=== PATIENT | male | born 1960 | race Caucasian/White ===

== ENCOUNTER 2019-01-16 21:23 | Observation (INO) ==
[2019-01-16] MEDS ORDERED: 0.9 % Sodium Chloride 1,000 ML IVC ONE (21:26)
--- NOTE | 2019-01-16 21:29 | Emergency Department Note ---
Overdose - Differential Diagnosis Likely: suicide attempt by multiple drug overdose, intentional overdose, accidental drug ingestion - Lab Data Lab results reviewed: Yes I reviewed the patient's lab results. Result diagrams: 01/16/19 21:36 01/16/19 21:36 Lab Results 01/16/19 01/16/19 01/16/19 Range/Units 21:26 21:35 21:36 WBC (4.3-11.1) K/mcL RBC (4.19-5.50) M/mcL Hgb (12.9-16.9) g/dL Hct (37.5-50.1) % MCV (83.0-100.0) fL MCH (28.0-33.3) pg MCHC (31.6-35.5) g/dL RDW (11.5-14.5) % Plt Count (140-400) K/mcL MPV (9.4-12.4) fL Immature Gran % (0-4) % Seg Neutrophils % % Lymphocytes % % Monocytes % % Eosinophils % % Basophils % % Neutrophils # (1.6-8.9) K/mcL Lymphocytes # (0.6-4.6) K/mcL Monocytes # (0.0-1.3) K/mcL Eosinophils # (0.0-0.6) K/mcL Basophils # (0.0-0.2) K/mcL Sodium (136-145) mEq/L Potassium (3.5-5.1) mEq/L Chloride (98-107) mEq/L Carbon Dioxide (23-29) mEq/L BUN (6-20) mg/dL Creatinine (0.70-1.30) mg/dL Est GFR ( Amer) (> 60) Est GFR (Non-Af Amer) (> 60) BUN/Creatinine Ratio (6-26) Glucose (70-105) mg/dL POC Glucose 155 H (70-99) mg/dL Calculated Osmolality (280-300) Calcium (8.6-10.3) mg/dL Total Bilirubin (0.3-1.0) mg/dL Direct Bilirubin (0.0-0.2) mg/dL Indirect Bilirubin (0.0-1.2) mg/dL AST (13-39) Units/L ALT (7-52) Units/L Alkaline Phosphatase (34-104) Units/L Serum Total Protein (6.4-8.9) g/dL Albumin (3.5-5.7) g/dL Globulin (2.4-3.5) g/dL Albumin/Globulin Ratio (1.1-2.2) Urine Color Yellow (Yellow) Urine Clarity Slightly Cloudy A (Clear) Urine pH 5.0 (5.0-8.0) pH Units Ur Specific [place] 1.020 (1.010-1.025) Urine Protein 30 H (Neg-Trace) mg/dL Urine Glucose (UA) Normal (Normal) mg/dL Urine Ketones Negative (Negative) mg/dL Urine Blood Trace-intact H (Negative) Urine Nitrite Negative (Negative) Urine Bilirubin Negative (Negative) Urine Urobilinogen Normal (Normal) mg/dL Ur Leukocyte Esterase Negative (Negative) Urine Microscopic RBC 3-5 H (0-3) per hpf Urine Microscopic WBC 3-5 H (0-3) per hpf Ur Squamous Epith Cells Few (None-Few) per lpf Urine Bacteria Many H (None-Few) per hpf Hyaline Casts Many H (None-Few) per lpf Urine Mucus Many H (Few) Urine Sperm Present Salicylates (15.0-30.0) mg/dL Urine Opiates Screen Negative (Oxjobs=700) ng/mL Ur Oxycodone Screen Negative (Cutoff= 100) ng/mL Acetaminophen (10-20) mcg/mL Ur Barbiturates Screen Negative (Byzpve=512) ng/mL Ur Phencyclidine Scrn Negative (Cutoff=25) ng/mL Ur Amphetamines Screen Negative (Axbaue=4057) ng/mL U Benzodiazepines Scrn Negative (Ljmpxi=061) ng/mL Urine Cocaine Screen Negative (Cutoff= 300) ng/mL U Marijuana (THC) Screen Positive H (Cutoff = 50) ng/mL Ur Drug Screen Interp See Below Ethyl Alcohol (Less than 10) mg/dL 01/16/19 01/16/19 Range/Units 21:36 21:36 WBC 15.1 H (4.3-11.1) K/mcL RBC 4.63 (4.19-5.50) M/mcL Hgb 15.0 (12.9-16.9) g/dL Hct 46.0 (37.5-50.1) % MCV 99.4 (83.0-100.0) fL MCH 32.4 (28.0-33.3) pg MCHC 32.6 (31.6-35.5) g/dL RDW 13.2 (11.5-14.5) % Plt Count 276 (140-400) K/mcL MPV 9.4 (9.4-12.4) fL Immature Gran % 0.7 (0-4) % Seg Neutrophils % 71.3 % Lymphocytes % 20.1 % Monocytes % 6.8 % Eosinophils % 0.7 % Basophils % 0.4 % Neutrophils # 10.8 H (1.6-8.9) K/mcL Lymphocytes # 3.0 (0.6-4.6) K/mcL Monocytes # 1.0 (0.0-1.3) K/mcL Eosinophils # 0.1 (0.0-0.6) K/mcL Basophils # 0.1 (0.0-0.2) K/mcL Sodium 141 (136-145) mEq/L Potassium 4.1 (3.5-5.1) mEq/L Chloride 102 (98-107) mEq/L Carbon Dioxide 26 (23-29) mEq/L BUN 14 (6-20) mg/dL Creatinine 1.61 H (0.70-1.30) mg/dL Est GFR ( Amer) 53 L (> 60) Est GFR (Non-Af Amer) 44 L (> 60) BUN/Creatinine Ratio 9 (6-26) Glucose 149 H (70-105) mg/dL POC Glucose (70-99) mg/dL Calculated Osmolality 295 (280-300) Calcium 9.2 (8.6-10.3) mg/dL Total Bilirubin 0.5 (0.3-1.0) mg/dL Direct Bilirubin 0.1 (0.0-0.2) mg/dL Indirect Bilirubin 0.4 (0.0-1.2) mg/dL AST 102 H (13-39) Units/L ALT 131 H (7-52) Units/L Alkaline Phosphatase 66 (34-104) Units/L Serum Total Protein 7.4 (6.4-8.9) g/dL Albumin 4.4 (3.5-5.7) g/dL Globulin 3.0 (2.4-3.5) g/dL Albumin/Globulin Ratio 1.5 (1.1-2.2) Urine Color (Yellow) Urine Clarity (Clear) Urine pH (5.0-8.0) pH Units Ur Specific [place] (1.010-1.025) Urine Protein (Neg-Trace) mg/dL Urine Glucose (UA) (Normal) mg/dL Urine Ketones (Negative) mg/dL Urine Blood (Negative) Urine Nitrite (Negative) Urine Bilirubin (Negative) Urine Urobilinogen (Normal) mg/dL Ur Leukocyte Esterase (Negative) Urine Microscopic RBC (0-3) per hpf Urine Microscopic WBC (0-3) per hpf Ur Squamous Epith Cells (None-Few) per lpf Urine Bacteria (None-Few) per hpf Hyaline Casts (None-Few) per lpf Urine Mucus (Few) Urine Sperm Salicylates 3.6 L (15.0-30.0) mg/dL Urine Opiates Screen (Ickeey=236) ng/mL Ur Oxycodone Screen (Cutoff= 100) ng/mL Acetaminophen < 10 L (10-20) mcg/mL Ur Barbiturates Screen (Ebwyfs=588) ng/mL Ur Phencyclidine Scrn (Cutoff=25) ng/mL Ur Amphetamines Screen (Ecuwja=4799) ng/mL U Benzodiazepines Scrn (Bojoqo=854) ng/mL Urine Cocaine Screen (Cutoff= 300) ng/mL U Marijuana (THC) Screen (Cutoff = 50) ng/mL Ur Drug Screen Interp Ethyl Alcohol < 10 (Less than 10) mg/dL - Radiology Data Radiology results reviewed: Yes I reviewed the patient's radiology results. Single view chest x-ray is performed. This shows hyperexpansion and apical emphysematous changes consistent with emphysema and COPD. There is no evidence for acute infiltrates, effusion, pneumothorax or heart failure. The cardiac silhouette appears normal. This is on my interpretation. Impressions Chest X-Ray 01/16/19 21:36 IMPRESSION: No acute cardiopulmonary disease. COPD. D/ / Miguel Pinzon MD / Miguel Pinzon MD Interpreting Provider: Miguel Pinzon MD - EKG Data EKG attestation: Yes I reviewed and interpreted this EKG. EKG shows normal: sinus rhythm, axis, intervals, QRS complexes, ST-T waves Rate: tachycardia (111) Interpretation: no acute changes, normal EKG Overdose HPI - General Stated Complaint: overdose Time Seen by Provider: 01/16/19 21:26 Source: patient, family Mode of arrival: private vehicle Limitations: altered mental status Nursing Notes Reviewed: Yes Vital Signs Reviewed: Yes - History of Present Illness HPI Narrative: Patient arrives by private auto honking outside of our emergency department doors. He is unresponsive and has been reported to "have taken something". He is cyanotic with pulse. His respirations are only 2-3 a minute. His pupils are small but unresponsive. He has bulging veins no obvious track dickson. He is unknown on arrival if this was an accidental/recreational drug use versus unintentional overdose. Patient is brought immediately to examining room and treatment initiated. No history is initially available from the patient or family due to the patient's acuity. Onset (ago): Just [employer] Timing confirmed by: family member Intent: accidental, unknown How Overdose Was Discovered: family/friend present at time Associated symptoms: shortness of breath Treatments Prior to Arrival: none - Related Data Home Medications Medication Instructions Recorded Confirmed Aspirin Enteric Coated [Aspirin EC] 81 mg PO DAILY 11/09/18 11/25/18 Gabapentin [Neurontin] 300 mg PO DAILY 11/09/18 11/09/18 Albuterol Sulfate [Proair Hfa] 2 puff IH Q4-6H PRN 11/25/18 11/25/18 Mv,Minerals/FA/Lycopene/Ginkgo 1 each PO DAILY 11/25/18 11/25/18 [One Daily For Men 50+ Adv Tab] Omeprazole [PriLOSEC] 40 mg PO DAILY 11/25/18 11/25/18 Previous Rx's Medication Instructions Recorded Acetaminophen [Tylenol] 650 mg PO Q6HR PRN #24 tablet 11/28/18 Budesonide/Formoterol 160/4.5 2 puff IH BIDR #1 bottle 11/28/18 [Symbicort 160/4.5] GuaiFENesin Liq [Robitussin Liq] 200 mg PO Q6HR #200 ml 11/28/18 predniSONE [PredniSONE] See Taper PO DAILY #12 tablet 11/28/18 Allergies Allergy/AdvReac Type Severity Reaction Status Date / Time No Known Allergies Allergy Verified 01/16/19 21:44 All systems ED: reviewed and negative except as stated. Past Medical History - Past Medical History Attestation: Yes The following information was validated with the patient. Source: old records reviewed, nursing notes reviewed Medical history: Reports: COPD Psychiatric history: Reports: no psych history - Social History Smoking Status: Current every day smoker Smokeless Tobacco Status: No Alcohol use: Reports: occasionally Drug use: Reports: none Physical Exam - General Limitations: altered mental status, physical limitation General appearance: obtunded, other (Densely cyanotic with distended neck veins, appendectomy) - Head Head exam: atraumatic, normocephalic, other (Cyanotic) - Eye Eye exam: Present: normal appearance, miosis. Absent: scleral icterus, conjunctival injection - ENT ENT exam: normal exam, normal oropharynx, mucous membranes moist - Neck Neck exam: Present: normal inspection, trachea midline - Chest Chest inspection: Present: normal inspection, other (Normal respiratory effort on arrival) - Respiratory Respiratory exam: Present: other (Apneic without respiratory effort, no response to sternal rub) - Cardiovascular Cardiovascular exam: Present: regular rate, normal rhythm, normal heart sounds - Abdominal Exam Abdominal exam: Present: soft, Non-Tender. Absent: tenderness, distention, guarding, rebound, rigidity - Extremities Exam Extremities exam: Present: normal inspection, full ROM, other (Cyanosis. No evidence for track dickson.). Absent: tenderness, pedal edema - Expanded Lower Extremity Exam Neurovascular/Tendon exam: Absent: normal capillary refill Gait: not tested/not observed - Neurological Exam Neurological exam: Present: other (Completely unresponsive on arrival and apneic) - Psychiatric Psychiatric exam: Present: other (Unresponsive on arrival) - Skin Skin exam: Present: dry, intact, cyanosis. Absent: normal color, diaphoresis Course Course Narrative: 2129: After 1 mg Narcan the patient is alert and maintaining his own airway. His pupils are about 4-5 mm and is conversive. He states that he did not take anything more than a Neurontin this evening. He denies any type of narcotic orally or intravenously. He is unable to explain why he would have responded so abruptly to Narcan. Patient is denying any specific physical complaint at this time. He denies taking any medication for self-harm or any thoughts of self- harm. 2134: I discussed care with the patient's family. He has had increased shortness of breath with his emphysema and COPD. Patient stated he had to stop frequently while they are walking around [facility]. They stopped to get some slushies, he took a 800 mg gabapentin and shortly thereafter stopped breathing and turned blue. They state that he did not have anything more than his COPD over the course the day and they understood that it was a gabapentin that he was taking. He has not voiced any thoughts of self-harm. They are not sure of the prescription was his own or somebody else's. They note that he has been prescribed them in the past. They report he did have a couple alcoholic beverages this evening. He has not been having abnormal coughing or fevers, chills or chest pain. They state he was recently admitted for a few days at [facility] for his COPD. 2154: Patient is resting comfortably. He currently has a respiratory rate of 14, heart rate of 104 and a oxygen saturation 94% on room air. Blood pressure is 110/70. He is alert and conversive with family at bedside. He was requesting to go home and he is encouraged to stay to evaluate further causes for his altered mental status. His family states that there might of been a woman at [facility] who gave him something. He is clear that his syndrome is of a narcotic overdose. He is adamant that he did not believe he was taking a narcotic. 2239: Patient has been very hesitant about staying in the hospital. I reviewed his testing with him and he does have significant new renal insufficiency. He had a life-threatening event with apneic, unresponsive this and did not cyanosis. He should be observed clinically and with repeat lab work status post continued IV hydration. I will allow the patient to talk this over with his family and he is, at this point, willing to stay for tonight. Patient is adamant against any transfer and refuses to go to [facility]. A call has been placed to Dr. Wang to discuss his potential observation. 2244: Care has been discussed with Dr. Wang and verbal orders have been obtained for his observation Vital Signs Temperature 98.8 F 01/16/19 21:30 Pulse Rate 112 01/16/19 21:30 Respiratory Rate 12 01/16/19 21:30 Blood Pressure 159/94 01/16/19 21:30 O2 Sat by Pulse Oximetry 100 01/16/19 21:30 Temperature 98.4 F 01/16/19 23:36 Pulse Rate 96 01/16/19 23:36 Respiratory Rate 17 01/16/19 23:36 Blood Pressure 104/64 01/16/19 23:36 O2 Sat by Pulse Oximetry 94 01/16/19 23:36 Oxygen Delivery Oxygen Delivery Nasal Cannula Critical Care Time Critical Care Time: Yes Total Critical Care Time: 50 Attestation: As this patient did present with signs and symptoms of potential life- threatening illness requiring my urgent intervention, total critical care time in this patient's care has been 50 minutes, not withstanding separately reportable procedures. Disposition Clinical Impression: Acute renal insufficiency Accidental drug ingestion Qualifiers: Encounter type: initial encounter Qualified Code(s): T50.901A - Poisoning by unspecified drugs, medicaments and biological substances, accidental (unintentional), initial encounter Altered mental status Qualifiers: Altered mental status type: stupor Qualified Code(s): R40.1 - Stupor Disposition: Admitted As Inpatient Condition: Fair
[2019-01-16 21:43] LABS: Bilirubin,Urine Negative (Negative); Blood,Urine Trace-intact (Negative); Clarity,Urine Slightly Cloudy (Clear); Color,Urine Yellow (Yellow); Glucose,Urine (UA) Normal (Normal); Ketones,Urine Negative (Negative); Leukocyte Esterase,Urine Negative (Negative); Nitrite,Urine Negative (Negative); Protein,Urine 30 mg/dL (Neg-Trace); Urobilinogen,Urine Normal (Normal)
[2019-01-16 21:49] LABS: Basophils # 0.1 K/mcL (0.0-0.2); Basophils % 0.4 %; Eosinophils # 0.1 K/mcL (0.0-0.6); Eosinophils % 0.7 %; Immature Granulocytes % 0.7 % (0-4); Lymphocytes % 20.1 %; Mean Corpuscular HGB Conc 32.6 g/dL (31.6-35.5); Mean Corpuscular Hemoglobin 32.4 pg (28.0-33.3); Mean Corpuscular Volume 99.4 fL (83.0-100.0); Mean Platelet Volume 9.4 fL (9.4-12.4); Monocytes % 6.8 %; Neutrophils # 10.8 K/mcL (1.6-8.9); Platelet Count 276 K/mcL (140-400); Red Blood Count 4.63 M/mcL (4.19-5.50); Red Cell Distribution Width 13.2 % (11.5-14.5); Segmented Neutrophils % 71.3 %
[2019-01-16 22:02] LABS: Hyaline Casts,Urine Many per lpf (None-Few)
[2019-01-16 22:03] LABS: Bacteria,Urine Many per hpf (None-Few); Mucus,Urine Many (Few); Sperm,Urine Present
[2019-01-16 22:06] LABS: Squamous Epithelial Cell,Urine Few per lpf (None-Few)
[2019-01-16 22:07] LABS: Acetaminophen < 10 mcg/mL (10-20); Alanine Aminotransferase 131 Units/L (7-52); Albumin 4.4 g/dL (3.5-5.7); Albumin/Globulin Ratio 1.5 (1.1-2.2); Alkaline Phosphatase 66 Units/L (34-104); Amphetamine Screen,Urine Negative ng/mL (Cutoff=1000); Aspartate Amino Transferase 102 Units/L (13-39); BUN/Creatinine Ratio 9 (6-26); Barbiturate Screen,Urine Negative ng/mL (Cutoff=200); Benzodiazepines Screen,Urine Negative ng/mL (Cutoff=200); Bilirubin,Direct 0.1 mg/dL (0.0-0.2); Bilirubin,Indirect 0.4 mg/dL (0.0-1.2); Bilirubin,Total 0.5 mg/dL (0.3-1.0); Blood Urea Nitrogen 14 mg/dL (6-20); Calcium 9.2 mg/dL (8.6-10.3); Cannabinoid Screen,Urine Positive ng/mL (Cutoff = 50); Carbon Dioxide 26 mEq/L (23-29); Chloride 102 mEq/L (98-107); Cocaine Screen,Urine Negative ng/mL (Cutoff= 300); Ethanol < 10 mg/dL (Less than 10); Glucose 149 mg/dL (70-105); Opiate Screen,Urine Negative ng/mL (Cutoff=300); Osmolality,Calculated 295 (280-300); Phencyclidine Screen,Urine Negative ng/mL (Cutoff=25); Potassium 4.1 mEq/L (3.5-5.1); Salicylate 3.6 mg/dL (15.0-30.0); Sodium 141 mEq/L (136-145); Total Protein 7.4 g/dL (6.4-8.9); eGFR For Non-African Americans 44 (> 60)
[2019-01-16] MEDS ORDERED: Naloxone 0.4 MG/ML INJ IVP PRN (23:34)
[2019-01-16] MEDS ORDERED: MOM Conc 10 ML UD.LIQ PO PRN (23:34)
[2019-01-16] MEDS ORDERED: Albuterol 2.5 MG/3 ML NEBULIZER IH PRN (23:34)
[2019-01-16] MEDS ORDERED: Mag Hydrox/Al Hydrox/Simeth 30 ML UDC PO PRN (23:34)
[2019-01-16] MEDS ORDERED: Ondansetron 4 MG/2 ML VIAL IVP PRN (23:34)
[2019-01-16] MEDS: 0.9 % Sodium Chloride 1,000 ML IVC SCH (23:51)
[2019-01-17] MEDS ORDERED: Nicotine 21 MG PATCH.TD24 TD SCH (01:30)
[2019-01-17] MEDS: Ipratropium/Albuterol Neb 3 ML IH SCH ×2 (04:41→10:31)
[2019-01-17] MEDS: 0.9 % Sodium Chloride 1,000 ML IVC SCH (06:55)
[2019-01-17 06:58] LABS: BUN/Creatinine Ratio 15 (6-26); Blood Urea Nitrogen 16 mg/dL (6-20); Calcium 8.6 mg/dL (8.6-10.3); Carbon Dioxide 29 mEq/L (23-29); Chloride 105 mEq/L (98-107); Glucose 184 mg/dL (70-105); Osmolality,Calculated 298 (280-300); Potassium 4.8 mEq/L (3.5-5.1); Sodium 141 mEq/L (136-145); eGFR For Non-African Americans > 60 (> 60)
[2019-01-17] MEDS ORDERED: Ondansetron ODT 4 MG TAB.RAPDIS SL PRN (09:01)
[2019-01-17] MEDS ORDERED: Acetaminophen 325 MG TABLET PO PRN (09:01)
[2019-01-17 10:48] VITALS: BP 106/67
--- NOTE | 2019-01-17 14:51 | Internal Med History&Physical ---
Date of Encounter: 01/17/19 Time of Encounter: 14:00 Assessment and Plan (1) Syncope Current visit: Yes Status: Acute Etiology not obvious. He denies illicit drug use other than THC. Improvement from Narcan is not easily explained based on urine drug test results. He wishes to be discharged home. Qualifiers: Syncope type: unspecified Qualified Code(s): R55 - Syncope and collapse (2) Elevated transaminase level Current visit: Yes Status: Acute No previous labs for comparison. His PCP can do further workup. (3) Acute renal insufficiency Current visit: Yes Status: Resolved Creatinine improved to 1.09 today with estimated GFR greater than 60. His PCP can monitor. (4) Hyperglycemia Current visit: Yes Status: Acute Present on labs since 11/26/2018. His PCP can order further workup/treatment. Internal Medicine - H&P: HPI Chief complaint: Syncope Admitted From: Emergency Dept Plans for Post Hospital Care: Home History of present illness: Mr. Roldan is a 58 year old male who was brought to emergency room by private vehicle due to unresponsiveness. He has limited ability to recall the details surrounding admission. Family who supplied history in emergency room reported patient had been shopping at [employer] with family. They left [employer] and went to a gas station for refreshments. Patient states he took 2 tablets of gabapentin 800 mg from a friend sometime in the afternoon. He denies ingestion of any other drugs except taking a "couple puffs" from a marijuana joint. He became unconscious and was brought to emergency room. He was given Narcan with significant improvement. Urine drug screen was negative for opiates. He was admitted to [facility] floor for observation. He reports he has not used illicit drugs other than THC for approximately 18 months. He reports consuming one beer in the past week. He denies previous syncopal or near syncopal episodes. He states he feels back to his baseline now and wishes to be discharged home. Past Med Surg Social Fam HX - Past Medical History Medical history: arthritis, asthma, COPD, GERD, other Additional medical history: CHRONIC BACK ISSUES , WEARS HOME 02 @ 2L w/ yordan, polysubstance abuse Psychiatric history: no psych history - Past Surgical History Additional surgical history: SURG ON STOMACH ULCERS - Social History Smoking Status: Current every day smoker Smokeless Tobacco Status: No Alcohol use: occasionally, recent Drug use: unknown, opiates, marijuana, methamphetamine, prescription drug abuse - Family History Father Hx Family Cancer: Yes Mother Hx Family Cardiac Disorders: Yes Brother Hx Family Respiratory Disorders: Yes Internal Medicine - H&P: Meds Aspirin Enteric Coated [Aspirin EC] 81 mg PO DAILY 11/09/18 [History] Gabapentin [Neurontin] 300 mg PO DAILY 11/09/18 [History] Albuterol Sulfate [Proair Hfa] 2 puff IH Q4-6H PRN 11/25/18 [History] Mv,Minerals/FA/Lycopene/Ginkgo [One Daily For Men 50+ Adv Tab] 1 each PO DAILY 11/25/18 [History] Omeprazole [PriLOSEC] 40 mg PO DAILY 11/25/18 [History] Acetaminophen [Tylenol] 650 mg PO Q6HR PRN #24 tablet 11/28/18 [Rx] Budesonide/Formoterol 160/4.5 [Symbicort 160/4.5] 2 puff IH BIDR #1 bottle 11/28/18 [Rx] GuaiFENesin Liq [Robitussin Liq] 200 mg PO Q6HR #200 ml 11/28/18 [Rx] predniSONE [PredniSONE] See Taper PO DAILY #12 tablet 11/28/18 [Rx] Allergy/AdvReac Type Severity Reaction Status Date / Time No Known Allergies Allergy Verified 01/16/19 21:44 All Systems PM: A 10-system review of systems was performed and is negative for pertinent findings except as documented above in the HPI. Review of systems: Gen.: He reports his weight has been stable for many months Cardiovascular: He reports he has seen a fudger at [place] in the past but does not know a diagnosis. Reports he was started on aspirin 81 mg daily. He denies [place] heart failure DVT or pulmonary embolus. He reports an EST approximately 2017 showed no findings needing further workup or intervention. He does report occasional chest pain on exertion described as a "ache". Respiratory: He is smoked since age 11 up to 2 packs per day. He reports PFTs several years ago showed COPD. He uses oxygen at bedtime and when necessary during the daytime GI: He reports a GI bleed approximate 2016 without recurrence. He reports having EGD more than one occasion with most recent one approximately 10 years ago. He reports colonoscopy approximate 2014. He denies disorders of his liver gallbladder or exocrine pancreas : He denies hematuria dysuria or kidney stones Neurologic: He denies large distribution strokes or seizures. Endocrine: He denies diabetes thyroid disease or hyperlipidemia Hematology/oncology: He denies blood disorders cancers or anemia Psychiatric: He denies anxiety depression or other mental health issues [place] skeletal: He denies arthritis gout or other bone joint or muscle disorders. - Constitutional Vitals: Temp Pulse Resp BP Pulse Ox 98.1 F 77 16 106/67 97 01/17/19 10:46 01/17/19 10:46 01/17/19 10:46 01/17/19 10:46 01/17/19 10:46 Exam: Gen.: He is a well-developed lean male resting comfortably in bed who appears in no acute distress HEENT: Head is atraumatic and normocephalic. Eyes: EOMI. There is no scleral icterus. Mouth: Mucosa is moist. Neck: Supple and nontender. There is no thyromegaly or adenopathy noted. Heart: Regular without murmurs gallops or ectopics Lungs: No wheezes or crackles are heard. Abdomen: Soft and nontender. No masses or guarding are noted. Extremities: There is no cyanosis edema or clubbing noted. Dorsalis pedis and posterior tibial pulses are trace palpable bilaterally. Neurologic: Mental status: He is talkative and a fair historian. He is rambling in conversation and does not remember some details of his history. Cranial nerves: Smile is symmetric. Forehead wrinkles bilaterally. Tongue protrudes midline. EOMI. Motor: There is no pronator drift. Cerebellar: Fair to nose is intact bilaterally. Skin: Warm and dry Internal Med - H&P Results - Labs CBC & Chem 7: 01/16/19 21:36 01/17/19 06:00 Labs: Short CBC 01/16/19 Range/Units 21:36 WBC 15.1 H (4.3-11.1) K/mcL Hgb 15.0 (12.9-16.9) g/dL Hct 46.0 (37.5-50.1) % Plt Count 276 (140-400) K/mcL Neutrophils # 10.8 H (1.6-8.9) K/mcL BMP 01/16/19 01/17/19 21:36 06:00 Sodium 141 141 Potassium 4.1 4.8 Chloride 102 105 Carbon Dioxide 26 29 BUN 14 16 Creatinine 1.61 H 1.09 Glucose 149 H 184 H Calcium 9.2 8.6 Liver Function 01/16/19 Range/Units 21:36 Total Bilirubin 0.5 (0.3-1.0) mg/dL Direct Bilirubin 0.1 (0.0-0.2) mg/dL AST 102 H (13-39) Units/L ALT 131 H (7-52) Units/L Alkaline Phosphatase 66 (34-104) Units/L Albumin 4.4 (3.5-5.7) g/dL Urine 01/16/19 Range/Units 21:26 Urine Color Yellow (Yellow) Urine Clarity Slightly Cloudy A (Clear) Urine pH 5.0 (5.0-8.0) pH Units Ur Specific [place] 1.020 (1.010-1.025) Urine Protein 30 H (Neg-Trace) mg/dL Urine Glucose (UA) Normal (Normal) mg/dL - Impressions ITS Impressions Chest X-Ray 01/16/19 21:36 IMPRESSION: No acute cardiopulmonary disease. COPD. D/ / Miguel Pinzon MD / Miguel Pinzon MD Interpreting Provider: Miguel Pinzon MD
--- NOTE | 2019-01-17 15:05 | Discharge Summary ---
Orders not resulted at time of discharge: Pending orders 01/16/19 21:26 ECG 12 lead ECG [ECG] Stat Date of Encounter: 01/17/19 Time of Encounter: 14:00 - Discharge Diagnosis (1) Syncope Priority: Primary Status: Resolved Qualifiers: Syncope type: unspecified Qualified Code(s): R55 - Syncope and collapse (2) Elevated transaminase level Priority: Secondary Status: Acute (3) Acute renal insufficiency Priority: Secondary Status: Resolved (4) Hyperglycemia Priority: Secondary Status: Acute Hospital course: Mr. Rlodan is a 58 year old male who was brought to emergency room by private vehicle due to unresponsiveness. He has limited ability to recall the details surrounding admission. Family who supplied history in emergency room reported patient had been shopping at [email or web address] with family. They left [email or web address] and went to a gas station for refreshments. Patient states he took 2 tablets of gabapentin 800 mg from a friend sometime in the afternoon. He denies ingestion of any other drugs except taking a "couple puffs" from a marijuana joint. He became unconscious and was brought to emergency room. He was given Narcan with significant improvement. Urine drug screen was negative for opiates. He was admitted to [facility] for observation. Initial orders were written by the emergency room physician. I saw him the afternoon of January 17 and performed a history physical and discharge. By the time I saw him he felt back to his baseline. He had adequate intake of food and fluids and was stable on ambulation. He could not give additional useful information about the syncopal episode. I encouraged him to become a nonsmoker and avoid all illicit substance use/abuse. He will follow with his PCP within 1 week. Further workup for elevated transaminase levels and hyperglycemia can be done by his PCP. - Time Spent with Patient Total time spent providing and/or coordinating discharge services: - Discharge Medications Prescriptions: Continued Gabapentin [Neurontin] 300 mg PO DAILY Aspirin Enteric Coated [Aspirin EC] 81 mg PO DAILY Albuterol Sulfate [Proair Hfa] 2 puff IH Q4-6H PRN PRN Reason: wheezing, shortness of breath Mv,Minerals/FA/Lycopene/Ginkgo [One Daily For Men 50+ Adv Tab] 1 each PO DAILY Omeprazole [PriLOSEC] 40 mg PO DAILY Acetaminophen [Tylenol] 650 mg PO Q6HR PRN #24 tablet PRN Reason: mild pain/fever GuaiFENesin Liq [Robitussin Liq] 200 mg PO Q6HR #200 ml Budesonide/Formoterol 160/4.5 [Symbicort 160/4.5] 2 puff IH BIDR #1 bottle predniSONE [PredniSONE] See Taper PO DAILY #12 tablet Home Medications: Aspirin Enteric Coated [Aspirin EC] 81 mg PO DAILY 11/09/18 [History] Gabapentin [Neurontin] 300 mg PO DAILY 11/09/18 [History] Albuterol Sulfate [Proair Hfa] 2 puff IH Q4-6H PRN 11/25/18 [History] Mv,Minerals/FA/Lycopene/Ginkgo [One Daily For Men 50+ Adv Tab] 1 each PO DAILY 11/25/18 [History] Omeprazole [PriLOSEC] 40 mg PO DAILY 11/25/18 [History] Acetaminophen [Tylenol] 650 mg PO Q6HR PRN #24 tablet 11/28/18 [Rx] Budesonide/Formoterol 160/4.5 [Symbicort 160/4.5] 2 puff IH BIDR #1 bottle 11/28/18 [Rx] GuaiFENesin Liq [Robitussin Liq] 200 mg PO Q6HR #200 ml 11/28/18 [Rx] predniSONE [PredniSONE] See Taper PO DAILY #12 tablet 11/28/18 [Rx] Allergies/Adverse Reactions: Allergy/AdvReac Type Severity Reaction Status Date / Time No Known Allergies Allergy Verified 01/16/19 21:44 Date of admission: 01/16/19 23:12 Primary care physician: Maria M Mcdaniel DO - Constitutional Vitals: Temp Pulse Resp BP Pulse Ox 98.1 F 77 16 106/67 97 01/17/19 10:46 01/17/19 10:46 01/17/19 10:46 01/17/19 10:46 01/17/19 10:46 - Patient Status Disposition: Home, Self-Care Condition: Fair - Discharge Instructions Follow Up With: Maria M Mcdaniel DO [Primary Care Provider] - 1 week Forms: ED Satisfaction Letter - Diet and Activity Activity: resume usual activities as tolerated Diet: advance to your usual diet
--- NOTE | 2019-01-18 10:07 | Electrocardiograph Report ---
[address] [address] Test Date: 2019-01-16 Pat Name: Maximilian Roldan Department: EDP-15 Room: [facility] Gender: M [employer]: : 1960 Requested By: Rachid Mccurdy Order Number: [id number] Reading MD: Nino Donato Measurements Intervals Staley Rate: 111 P: 78 ID: [id number] QRS: 90 QRSD: 81 T: 60 QT: 317 QTc: 431 Interpretive Statements Sinus tachycardia Borderline right axis deviation Electronically Signed On 01-18-2019 10:06:10 EDT by Nino Donato
== END 2019-01-17 16:05 | disposition home or self-care (01) ==
LOC: EMEROOPIK 21:23 → INPPIK 21:23
PROVIDERS: ADMIT Internal Medicine; ATTEND Internal Medicine